=== PATIENT | male | born 1960 | race Caucasian/White ===

== ENCOUNTER 2018-05-13 16:15 | Outpatient (CLI) | END 2018-05-13 16:16 | disposition home or self-care (01) | LOC: FCC-LAB 16:15 | PROVIDERS: ATTEND Family Medicine | DX: Z51.81 Encounter for therapeutic drug level monitoring (principal); Z79.891 Long term (current) use of opiate analgesic | CPT/HCPCS: 80306 ==

== ENCOUNTER 2018-09-18 13:27 | Outpatient (CLI) | END 2018-09-18 13:28 | disposition home or self-care (01) | LOC: RHC-LAB 13:27 → FCC-LAB 13:28 | PROVIDERS: ATTEND Family Medicine | DX: R68.89 Other general symptoms and signs (principal) | CPT/HCPCS: 87502 ==